=== PATIENT | male | born 1975 | race Caucasian/White ===

== ENCOUNTER 2017-08-09 17:59 | Inpatient (IN) | payer OTHER ==
[~2017-08-09] VITALS: Ht 170.2 cm; Wt 98.5 kg
[~2017-08-09 17:59] MED LIST: AMBIEN5 MG PO; BUSPAR10 MG PO; CATAPRES0.1 MG PO; COGENTIN0.5 MG PO; COGENTIN2 MG PO; DEPAKOTE250 MG PO; DEPAKOTE500 MG PO; DIVALPROEX SOD250 MG PO; DIVALPROEX SOD500 MG PO; RISPERDAL0.25 MG PO; RISPERDAL2 MG PO; RISPERDAL4 MG PO; TOPAMAX100 MG PO; TOPAMAX50 MG PO; ZOLPIDEM TARTRAT5 MG PO
[2017-08-09 19:18] LABS: HEMATOCRIT 40.9 % (38.0-50.0); MCH 28.5 PG (29.0-34.0); MCHC 33.5 G/DL (30.0-36.0); MCV 85.2 FL (86-99); MEAN PLAT.VOLUME 10.5 uM^3 (9.0-12.4); PLATELET COUNT 216 K/uL (156-360); RBC DIS.WIDTH-SD 40.4 % (39-53); WHITE BLOOD COUNT 9.4 K/uL (4.1-10.2)
[2017-08-09 19:42] LABS: CHLORIDE 105 mEq/L (99-109); POTASSIUM 3.9 mEq/L (3.7-5.4); SODIUM 137 mEq/L (136-147)
[2017-08-09 19:44] LABS: GLUCOSE 100 mg/dL (70-99)
[2017-08-09 19:45] LABS: ANION GAP 10 MEQ/L (2-14)
[2017-08-09 19:47] LABS: GFR ESTIMATE (CALCULATED) > 59 mL/min/; SERUM ETHYL ALCOHOL < 10 mg/dL
[2017-08-09 19:48] LABS: UREA NITROGEN (BUN) 11 mg/dL (9-23)
[2017-08-09 23:26] LABS: AMPHETAMINE NEGATIVE (500 ng/mL); BARBITURATES NEGATIVE (200 ng/mL); BENZODIAZEPINES NEGATIVE (150 ng/mL); COCAINE NEGATIVE (150 ng/mL); INTERNAL CONTROLS VALID? YES; METHADONE NEGATIVE (200 ng/mL); METHAMPHETAMINE NEGATIVE (500 ng/mL); OPIATES (MORPHINE) NEGATIVE (100 ng/mL); OXYCODONE NEGATIVE (100 ng/mL); PHENCYCLIDINE NEGATIVE (25 ng/mL); PROPOXYPHENE NEGATIVE (300 ng/mL); THC CANNABINOIDS NEGATIVE (50 ng/mL); TRICYCLIC ANTIDEPRESSANTS NEGATIVE (300 ng/mL)
[2017-08-10 02:02] VITALS: BP 132/80
[2017-08-10] MEDS ORDERED: DEPAKOTE500 MG PO ×2 (05:50→05:52)
[2017-08-10] MEDS ORDERED: CATAPRES0.1 MG PO (05:55)
[2017-08-10] MEDS ORDERED: COGENTIN1 MG PO (05:56)
[2017-08-10] MEDS ORDERED: RISPERDAL4 MG PO ×2 (05:58→06:00)
[2017-08-10] MEDS ORDERED: TOPAMAX100 MG PO (06:02)
[2017-08-10] MEDS ORDERED: TOPAMAX50 MG PO (06:04)
[2017-08-10] MEDS ORDERED: BUSPAR15 MG PO (06:06)
[2017-08-10] MEDS ORDERED: AMBIEN10 MG PO (06:07)
[2017-08-10] MEDS ORDERED: LISINOPRIL10 MG PO (06:09)
[2017-08-10] MEDS ORDERED: MOTRIN400 MG PO (06:10)
[2017-08-10] MEDS ORDERED: PERPHENAZINE8 MG PO (06:16)
[2017-08-10 07:49] VITALS: BP 159/99
[2017-08-10 09:34] VITALS: BP 132/81
[2017-08-10 15:38] VITALS: BP 144/85
[2017-08-11 07:26] VITALS: BP 133/75
[2017-08-11 15:51] VITALS: BP 130/74
[2017-08-12 07:36] VITALS: BP 118/68
[2017-08-12 15:21] VITALS: BP 105/68
[2017-08-13 07:46] VITALS: BP 124/74
[2017-08-13 15:47] VITALS: BP 116/63
[2017-08-14 07:36] VITALS: BP 128/74
[2017-08-14 15:53] VITALS: BP 115/67
[2017-08-15 09:16] VITALS: BP 133/71
[2017-08-15 15:31] VITALS: BP 114/66
[2017-08-16 08:02] VITALS: BP 139/61
[2017-08-16] MEDS ORDERED: CITALOPRAM HBR10 MG PO ×2 (09:44→09:59)
[2017-08-16] MEDS ORDERED: CLONAZEPAM1 MG PO ×2 (09:44→09:59)
[2017-08-16] MEDS ORDERED: AMOXICILLIN500 MG PO ×2 (09:44→09:59)
[2017-08-16] MEDS ORDERED: PERPHENAZINE4 MG PO ×2 (09:44→09:59)
== END 2017-08-16 14:53 | disposition home or self-care (01) | DRG 885 ==
LOC: EME 17:59 → 1WEST 22:45 → EDOF 22:45 → ENRESERV 08-10 01:26 → 1WEST 08-10 01:58
DX: F25.0 Schizoaffective disorder, bipolar type (principal); F70 Mild intellectual disabilities; F22 Delusional disorders; G43.909 Migraine, unspecified, not intractable, without status migrainosus; L03.031 Cellulitis of right toe
CPT/HCPCS: 80048; 80164; 85027; 90839; 97150 GO; 97165 GO; 99281; 99284; G0480; Q0175

== ENCOUNTER 2017-09-10 16:42 | Emergency (ER) | payer OTHER ==
[~2017-09-10] VITALS: Ht 175.3 cm; Wt 97.9 kg
[~2017-09-10 16:42] MED LIST changes: +AMBIEN10 MG PO; +AMOXICILLIN500 MG PO; +BUSPAR15 MG PO; +CITALOPRAM HBR10 MG PO; +CLONAZEPAM1 MG PO; +COGENTIN1 MG PO; +LISINOPRIL10 MG PO; +MOTRIN400 MG PO; +PERPHENAZINE4 MG PO; +PERPHENAZINE8 MG PO
[2017-09-10] MEDS ORDERED: KEFLEX500 MG PO (21:16)
[2017-09-10 21:56] VITALS: BP 118/80
== END 2017-09-10 21:57 | disposition home or self-care (01) ==
LOC: EME 16:42
PROC: 0HBRXZZ Excision of Toe Nail, External Approach (ICD-10-PCS; principal; 2017-09-10)
DX: L60.0 Ingrowing nail (principal); Z88.8 Allergy status to other drugs, medicaments and biological substances
CPT/HCPCS: 99281; 99284; S0020